=== PATIENT | female | born 1995 | race Caucasian/White ===

== ENCOUNTER 2018-09-16 21:23 | Emergency (ER) | payer OTHER ==
[~2018-09-16] VITALS: Ht 160 cm; Wt 53.1 kg
[2018-09-16 21:57] LABS: ABSOLUTE NEUTROPHILS 5.5 thou/uL (1.4-8.2); BASOPHILS 0.8 % (0.0-2.0); EOSINOPHILS 0.8 % (0.0-3.0); HEMATOCRIT 35.7 % (37.0-47.0); LYMPHOCYTES 29.5 % (24.0-44.0); MCH 34.8 pg (26.0-34.0); MCHC 36.3 g/dL (28.0-37.0); MCV 95.9 fL (80.0-100.0); MONOCYTES 7.5 % (1.0-8.0); PLATELET COUNT 263 thou/uL (150-400); POLYS 61.4 % (36.0-66.0); RBC 3.72 mil/uL (4.20-5.00); RDW 12.2 % (10.5-14.5)
[2018-09-16 23:23] VITALS: BP 107/50
== END 2018-09-16 23:23 | disposition home or self-care (01) ==
LOC: ER 21:23
PROVIDERS: Emergency Medicine
DX: O26.891 Other specified pregnancy related conditions, first trimester (principal); R10.11 Right upper quadrant pain; Z3A.09 9 weeks gestation of pregnancy